=== PATIENT | male | born 1950 | race Caucasian/White ===

== ENCOUNTER → 2023-05-13 08:54 | Outpatient (REF) | payer MEDICARE, SELFPAY | LOC: HWRAD 08:54 | PROVIDERS: ATTENDING PHYSICIAN Internal Medicine Critical Care Medicine; FAMILY PHYSICIAN Family Medicine | DX: R93.89 Abnormal findings on diagnostic imaging of other specified body structures (principal) | CPT/HCPCS: 71250 ==

== ENCOUNTER 2023-05-16 05:56 | Day surgery (SDC) | payer MEDICARE, SELFPAY ==
[2023-05-16] VITALS (20 sets, daily range): BP systolic 128–151; BP diastolic 60–132; BMI 26.1
[2023-05-16] MEDS: NSS 255 ML IV (06:34)
[2023-05-16 09:21] LABS: ACT-LR - POC 258 Seconds (116-155)
--- NOTE | 2023-05-16 16:34 | ITS.CL.CATH ---
[facility] - Catheterization
Cardiac Catheterization
Procedure Report:
LEFT HEART CATHETERIZATION
Date of Procedure: May 16, 2023
Referring: Dr. Micky Keith
PROCEDURES:
1. Left heart catheterization with coronary and single-plane left ventriculography
2. Hemodynamic assessment of LAD and diagonal branch with a Bovey Verrata wire
INDICATION: This is a physically active 73-year-old gentleman who was evaluated by Dr. Keith for dyspnea on exertion which he states actually gets better with ongoing exercise. A recent stress study was notable for a small area of mild to
moderately reduced uptake in the septum. He is now referred for coronary angiography to better assess symptoms
ACCESS: Right radial artery, 6 Bengali sheath
HEMODYNAMICS : (mmHg)
AO (s/d) : 150/75
LV (s/d) : 144/12
LVEDP : 24
CORONARY FINDINGS
DOMINANCE: Right
LEFT MAIN: Normal
LEFT ANTERIOR DESCENDING: The proximal LAD is calcified. The first diagonal branch arises very proximally from the LAD then bifurcates in its midportion with a daughter branch paralleling the LAD and has a 70-80% stenosis at its ostium. The mid
LAD just beyond the diagonal branch has a 60% stenosis that is calcified. The iFR in the LAD serially measured 0.92, 0.92, and 0.92. The iFR in the diagonal branch measured 0.94, 0.94, and 0.95.
CIRCUMFLEX: The circumflex gives rise to a small OM1, very small OM 2, and medium caliber OM 3 then terminates in a small posterolateral branch.
RIGHT CORONARY ARTERY: The right coronary artery is a dominant vessel that has minor irregularities throughout its course. The PDA has a 30% ostial narrowing. The posterolateral lateral branch is large
VENTRICULOGRAPHY: Left ventriculography was performed in an VELASQUEZ projection. The digital single-plane left ventricular ejection fraction is estimated at 55% with some catheter associated mitral regurgitation noted
RADIATION SUMMARY: Fluoro Time (min): 9.0, Dose (mGy): 621.8, DAP (Gy.cm2) : 55.2
Closure Device: TR band
CONCLUSIONS
1. Moderate noncritical coronary disease in the mid LAD with calcified stenosis just beyond the origin of the proximally arising diagonal branch. The diagonal branch bifurcates into the midportion supplying to medium caliber daughter branches with
a medial branch paralleling the LAD with an 80% proximal stenosis just beyond the bifurcation point
2. Preserved left ventricular systolic function
RECOMMENDATIONS
1. Push antianginal regimen to include oral beta-sheila and possible Imdur or amlodipine as blood pressure tolerates
2. Begin furosemide for an elevated LVEDP to see if diastolic dysfunction may be contributing to his shortness of breath
Copy to: Dr. Micky Keith
== END 2023-05-16 12:56 | disposition home or self-care (01) ==
LOC: CATH 05:56
PROVIDERS: ATTENDING PHYSICIAN Internal Medicine Interventional Cardiology; FAMILY PHYSICIAN Family Medicine
DX: I25.10 Atherosclerotic heart disease of native coronary artery without angina pectoris (principal); R06.09 Other forms of dyspnea; I25.84 Coronary atherosclerosis due to calcified coronary lesion; Z79.01 Long term (current) use of anticoagulants; R94.39 Abnormal result of other cardiovascular function study
CPT/HCPCS: 85347; 93458; 93571; C1769; C1894; Q9967

== ENCOUNTER → 2023-05-25 10:08 | Outpatient (REF) | payer MEDICARE, SELFPAY ==
[2023-05-25 11:23] LABS: Blood Urea Nitrogen 21 mg/dl (9-20); Calcium 8.8 mg/dl (8.4-10.2); Carbon Dioxide 33 mmol/L (22-30); Chloride 103 mmol/L (98-107); Glucose 80 mg/dl (70-99); Potassium 4.4 mmol/L (3.5-5.1); Sodium 138 mmol/L (135-145); eGFR > 60.00
== END ==
LOC: REG 10:08
PROVIDERS: ATTENDING PHYSICIAN Nurse Practitioner; FAMILY PHYSICIAN Family Medicine; OTHER PHYSICIAN Internal Medicine Cardiovascular Disease; REFERRING PHYSICIAN Internal Medicine Interventional Cardiology
DX: I25.10 Atherosclerotic heart disease of native coronary artery without angina pectoris (principal)
CPT/HCPCS: 36415; 80048

== ENCOUNTER → 2023-06-16 09:37 | Outpatient (REF) | payer MEDICARE, SELFPAY ==
[2023-06-16 12:59] LABS: Creatine Phosphokinase 76 U/L (55-170)
[2023-06-16 13:10] LABS: NT-proBNP 288 pg/ml
[2023-06-16 13:32] LABS: Rheumatoid Agglutinin Less Than 10 IU (<10 IU)
[2023-06-17 22:58] LABS: Aldolase 4.4 U/L (1.2-7.6)
[2023-06-17 23:01] LABS: Angiotensin-1-converting Enzym 16 U/L (16-85)
[2023-06-18 02:38] LABS: ANA, IgG Reflex to HEp-2 None Detected (None Detected)
[2023-06-18 06:43] LABS: Jo-1 Antibodies 0 AU/mL (0-40); SSA 52 (Ro)(ENA) Ab, IgG 1 AU/mL (0-40); SSA 60 (Ro)(ENA) Ab, IgG 0 AU/mL (0-40); SSB (La)(ENA) Ab, IgG 15 AU/mL (0-40); Scleroderma Antibody (Scl-70) 2 AU/mL (0-40)
[2023-06-18 08:37] LABS: ds-DNA Ab, IgG Reflex To Titer 9 IU (0-24)
[2023-06-18 08:42] LABS: IgE 594 kU/L (<=214)
[2023-06-18 17:27] LABS: Myeloperoxidase Antibody 0 AU/mL (0-19); Serine Protease-3, IgG 0 AU/mL (0-19)
[2023-06-22 09:35] LABS: Aspergillus fumigatus #1 Ab None Detected (None Detected); Aspergillus fumigatus #6 Ab None Detected (None Detected); Aureobasidium pullulans Ab None Detected (None Detected); Micropolyspora faeni Ab None Detected (None Detected); Pigeon Serum Ab None Detected (None Detected)
== END ==
LOC: HWLAB 09:37
PROVIDERS: ATTENDING PHYSICIAN Internal Medicine Critical Care Medicine; FAMILY PHYSICIAN Family Medicine
DX: J84.9 Interstitial pulmonary disease, unspecified (principal)
CPT/HCPCS: 36415; 82085; 82164; 82550; 82785; 83516; 83880; 86038; 86225; 86235; 86331; 86430; 86606

== ENCOUNTER → 2023-07-08 09:04 | Outpatient (REF) | payer MEDICARE, SELFPAY ==
[2023-07-08 12:53] LABS: ALT (SGPT) 27 U/L (0-50); AST (SGOT) 40 U/L (17-59); Albumin 4.2 g/dl (3.5-5.0); Alkaline Phosphatase 99 U/L (38-126); Direct Bilirubin 0.1 mg/dl (0.0-0.4); HDL Cholesterol 88 mg/dl; LDL Cholesterol, Calculated 35 mg/dl; Total Cholesterol 139 mg/dl (50-199); Total Protein 6.7 g/dl (6.3-8.2); Triglyceride 81 mg/dl (10-149); Very Low Density Lipoprotein 16 mg/dl (0-30)
== END ==
LOC: HWLAB 09:04
PROVIDERS: ATTENDING PHYSICIAN Internal Medicine Cardiovascular Disease; FAMILY PHYSICIAN Family Medicine
DX: E78.00 Pure hypercholesterolemia, unspecified (principal)
CPT/HCPCS: 36415; 80061; 80076

== ENCOUNTER → 2023-08-16 06:33 | Day surgery (SDC) | payer MEDICARE, SELFPAY | LOC: GI 06:33 | PROVIDERS: ATTENDING PHYSICIAN Internal Medicine Gastroenterology | DX: K22.70 Barrett's esophagus without dysplasia (principal); K29.50 Unspecified chronic gastritis without bleeding; K22.89 Other specified disease of esophagus; K44.9 Diaphragmatic hernia without obstruction or gangrene; K31.A0 Gastric intestinal metaplasia, unspecified; K31.89 Other diseases of stomach and duodenum | CPT/HCPCS: 43239; 88305; 88342 ==

== ENCOUNTER → 2024-06-08 11:04 | Outpatient (REF) | payer MEDICARE, SELFPAY | LOC: HWRAD 11:04 | PROVIDERS: ATTENDING PHYSICIAN Internal Medicine Critical Care Medicine; FAMILY PHYSICIAN Family Medicine | DX: J84.9 Interstitial pulmonary disease, unspecified (principal) | CPT/HCPCS: 71250 ==

== ENCOUNTER 2024-07-19 07:41 | Emergency (ER) | payer MEDICARE, SELFPAY ==
[2024-07-19 07:49] VITALS: BP 157/73
--- NOTE | 2024-07-19 08:02 | ED.GENMED ---
History of Present Illness
General
Chief Complaint: Chest Pain
Source: patient and spouse
Exam Limitations: none
Time Seen by Provider: 07/19/24 07:55
History of Present Illness
History of Present Illness:
74-year-old male with exertional chest pressure down to the arms with shortness of breath and diaphoresis while on the treadmill this morning. Lasted 5 to 10 minutes. Has had intermittent symptoms in the past. Previous cath June 04.
Currently asymptomatic
Past History
Past History
ED Past Medical History: CAD (Moderate noncritical coronary disease left anterior descending), HTN, Hypercholesterolemia and Other (DVT)
Review of Systems
Review of Systems
All Other Systems: Not applicable
Constitutional: Denies fever or chills
Respiratory: Reports cough; Denies hemoptysis
Cardiac: Reports no symptoms
Phy Exam
Physical Exam
Physical Exam:
GENERAL: Alert and oriented in no apparent distress
EYE: Orbits normal.
NECK: Supple, no significant adenopathy.
ENT: Pharynx without erythema
CARDIAC: Regular rate and rhythm without any obvious murmurs.
LUNGS: Clear breath sounds,normal
ABDOMEN: Soft, without focal tenderness or distention
NEUROLOGICAL: Alert and oriented , grossly non-focal
SKIN: Warm and dry, no rash or lesion, no discoloration, skin intact.
MUSCULOSKELETAL: No edema,no deformity.Good color
PSYCH: Normal and appropriate interaction.
Scores
Heart Score for Chest Pain Patients
STEMI patient?: No
History: Highly Suspicious
ECG: Nonspecific Repolarization
Age: >/= 65 years
Risk Factors: 1 or 2 Risk Factors
Troponin: >1 - <3 x Normal Limit
Heart Score for Chest Pain Patients: 7
Heart Score Risk: 72.7 % MACE over next 6 weeks
Course
Orders/Labs/Results
Orders:
Orders
07/19/24 07:44
Electrocardiogram (*1) Urgent
Reason for Study: Chest Pain
EKG- Treatment ONCE
07/19/24 08:00
Cardiac Monitoring- Treatment ONCE
EKG- Treatment ONCE
IV Insert/Care/Rem.- Treatment PRN
CR Chest - 2 Views Urgent
Comment:
Reason For Exam: cp/sob/some cough
Pulse Ox/cont/shift [RESP] Stat
Quantity: 1
07/19/24 08:03
Basic Metabolic Panel Urgent
Complete Blood Count/With Diff Urgent
Troponin I Urgent
07/19/24 10:50
Echo 2D MMode Color/Doppler Urgent
Reason for Study: CP, SOB
07/19/24 11:05
Troponin I Urgent
Abnormal Lab Results
07/19/24
08:03
RBC 4.12 L 10^6/uL
(4.70-6.10)
MCV 96.6 H fL
(80.0-94.0)
MCH 33.0 H pg
(27.0-31.0)
Absolute Monos (auto) 0.8 H 10^3/uL
(0.1-0.6)
Monocytes % 14.0 H %
(1.7-9.3)
Carbon Dioxide 31 H mmol/L
(22-30)
Glucose 116 H mg/dl
(70-99)
07/19/24 08:03
07/19/24 08:03
Vital Signs
Initial and Last Documented VS:
Initial Vital Signs
Temp Pulse Resp BP Pulse Ox
98.2 F 58 16 157/73 98
07/19/24 07:49 07/19/24 07:49 07/19/24 07:49 07/19/24 07:49 07/19/24 07:49
Last Documented Vital Signs
Temp Pulse Resp BP Pulse Ox
98.2 F 57 16 139/68 97
07/19/24 07:49 07/19/24 13:45 07/19/24 13:45 07/19/24 13:00 07/19/24 13:45
*Pulse Oximetry
Patient hypoxic: no
*EKG
Interpreted by ED Provider?: Yes
Interpretation: abnormal
Comparison EKG: no comparison EKG present
Heart Rate: 67
Rate: normal
Rhythm: sinus
Walker: left axis deviation
QRS Pattern: left vent hypertrophy
Ischemia: non-specific ST changes
*[employer] Hitch Driver Interpretation
Rate: normal
Interpretation: normal
Heart Rate: 77
Rhythm: sinus
*Critical Care Note
Total Time (30-74mins, 75-104mins- exclusive of procedures): Not Applicable
Data Reviewed
Review of Other/Old Records Reveals: Labs, Records, Radiology Studies, Testing and Other (Cardiac cath report)
Update Note
Update Note:
Echocardiogram stable. Cleared by cardiology. They are arranging a sestamibi stress test for this Tuesday and starting Norvasc.
ED Attending Note
-
Portions of this chart may have been created with voice recognition software.� Occasional wrong word or��sound alike� substitutions may have occurred due to the inherent limitations of voice recognition software.
Discharge Plan
Departure
Date of Disposition: 07/19/24
Time of Disposition: 13:57
Patient with high blood pressure during this ER visit?: Yes
Prescriptions:
New
amlodipine [Norvasc] 5 mg tablet
5 mg PO DAILY Qty: 30 3RF
No Action
rabeprazole [AcipHex] 20 mg Tablet,Delayed Release (Dr/Ec)
20 mg PO Q48H
sildenafil [Viagra] 50 mg Tablet
25 mg PO DAILY PRN (Reason: ED)
psyllium Packet
1 packet PO DAILY
finasteride 5 mg Tablet
5 mg PO DAILY
Multi Complete with Iron 18-400 mg-mcg Tablet
1 tab PO DAILY
Eliquis 5 mg Tablet
5 mg PO BID
calcium carb-mag ox-zinc gluc 333-133-5 mg Tablet
1 tab PO DAILY
metoprolol succinate [Toprol XL] 25 mg tablet extended release 24 hr
25 mg PO DAILY Qty: 90 3RF
atorvastatin [atorvastatin] 40 mg tablet
40 mg PO DAILY Qty: 90 3RF
furosemide [Lasix] 20 mg tablet
20 mg PO DAILY Qty: 90 3RF
Interventions
Interventions:
*Risk Screen - Suicide Last Done: 07/19/24 07:49
*General Assessment Last Done: 07/19/24 08:09
*Neglect/Abuse Screening Last Done: 07/19/24 07:49
*ED- Fall Risk Assessment Last Done: 07/19/24 08:09
*ED COVID-19 Vaccine History Last Done: 07/19/24 08:09
ED- Cardiac Assessment Last Done: 07/19/24 08:09
Discharge Date and Time
Print Language: GUYANESE
[2024-07-19 08:08] VITALS: BMI 25.7
[2024-07-19 08:13] LABS: % Basophils 0.9 % (0-2); % Eosinophils 3.7 % (0-6); % Immature Granulocytes 0.4 % (0-0.5); % Lymphocytes 28.1 % (20.5-51.1); % Neutrophils 52.9 % (42.2-75.2); Absolute Basophils 0.1 10^3/uL (0-0.2); Absolute Eosinophils 0.2 10^3/uL (0-0.7); Absolute Lymphocytes 1.6 10^3/uL (1.2-3.4); Absolute Monocytes 0.8 10^3/uL (0.1-0.6); Hematocrit 39.8 % (39.0-52.0); Hemoglobin 13.6 g/dL (13.0-18.0); Mean Corp Hgb Conc. 34.2 g/dL (33.0-37.0); Mean Corpuscular Volume 96.6 fL (80.0-94.0); Mean Platelet Volume 9.6 fL (7.4-10.4); Nucleated Red Blood Cells % 0 % (-); Platelet Count 175 10^3/uL (130-400); Red Blood Cell Count 4.12 10^6/uL (4.70-6.10); Red Cell Dist. Width 12.3 % (11.5-14.5); White Blood Cell Count 5.7 10^3/uL (4.8-10.8)
[2024-07-19 08:36] LABS: Troponin I < 0.012 ng/ml
[2024-07-19 08:39] LABS: Blood Urea Nitrogen 20 mg/dl (9-20); Calcium 9.3 mg/dl (8.4-10.2); Carbon Dioxide 31 mmol/L (22-30); Chloride 104 mmol/L (98-107); Estimated Creatinine Clearance 67 ml/min; Glucose 116 mg/dl (70-99); Potassium 4.5 mmol/L (3.5-5.1); Sodium 141 mmol/L (135-145); eGFR > 60.00
--- NOTE | 2024-07-19 09:30 | EDRN ---
Report received, introduced myself to patient and informed them that we are waiting on cardiology to see them, call linton in reach, no complaints at this time, will continue to monitor
[2024-07-19 09:35] VITALS: BP 135/69
[2024-07-19 10:01] VITALS: BP 153/83
--- NOTE | 2024-07-19 10:14 | CON.CAR ---
Addendum entered and electronically signed by Remy Oliveira MD 07/19/24 11:44:
I saw and examined the patient.
The Mobile Home Technician's note was reviewed and I agree with the note.
Comment:
GEN: No distress, awake, Ox3
HEENT: supple, anicteric, mmm
LUNGS: CTA, no wheezes/rales
CV: Reg, S1/S2, 1/6 syst LSB, no gallop
ABD: soft, BS+, NT/ND
EXT: No edema
NEURO: Gross non-focal
SKIN: No rash
Plan:
74-year-old male with past medical history of DVT and moderate coronary artery disease, interstitial lung disease, hypertension, chronic right bundle-branch block and chronic heart failure with preserved ejection fraction presents with progressive
exertional dyspnea. The patient was walking today where he had increased dyspnea. The symptoms seem worse than his usual dyspnea symptoms. He had a previous cardiac catheterization in May 2023 which revealed moderate nonobstructive coronary
artery disease with a negative IFR of his LAD. He was previously tried on Lasix 20 mg daily with minimal improvement.
The etiology of his symptoms remains unclear. First troponin is negative. Will repeat a troponin. If second troponin negative he is stable to be discharged for outpatient exercise nuclear stress test.
EKG is overall unremarkable with normal sinus rhythm with left axis deviation and LVH.
Previous CT scan does suggest some interstitial lung disease. He has no signs of volume overload by chest x-ray today.
If stress test is abnormal we will consider repeat cardiac catheterization at that time.
Continue medical therapy including Eliquis, atorvastatin, metoprolol.
His blood pressure is elevated we will start Norvasc 5 mg daily.
Original Note:
Consultation
Consultation Request
Date/Time Consultation Performed: 07/19/24
Requesting Provider: Dr. Simental
Performing Provider: Isa Sanchez PA-C for Dr. Oliveira
Reason for Consultation: CP
Medical History
-
Chief Complaint: CP, SOB
History of Present Illness:
Patient is a 74-year-old male with past medical history of unprovoked DVTs in the setting of getting a COVID booster approximately 1.5 years ago. He reports since this time he has had issues with shortness of breath and chest pressure at times. He
underwent cardiac catheterization 05/2023 which showed moderate noncritical coronary disease in mid LAD with stenosis just beyond the origin of proximal diagonal branch which then bifurcates into daughter branches with medial branch paralleling LAD
with 80% proximal stenosis. This was not felt to be hemodynamically significant and antianginal regimen was encouraged (on toprol 25mg daily). He also has interstitial lung disease with prior smoking history and is followed by pulmonary. He
reports for the last 2 to 3 weeks he has had increasing frequency of symptoms. He reports at times he awakens in the middle of the night with chest discomfort, and reports his symptoms are definitely worsened with exertion. He does report that
historically with power walking for example, he has a hard time with the first 500 to 600 yards of exercise, however then his symptoms improve when he pushes through. He had been started on Lasix 20 mg daily for possible component of diastolic
congestive heart failure, however states his symptoms have not significantly improved with this. He does report good urination with present dose of Lasix. He reports this morning when he was at the gym he completed approximately 1 minute of
exercise on the elliptical and had to stop due to feelings of chest pressure, shortness of breath, lightheadedness, diaphoresis, numbness of his bilateral upper extremities and mild nausea. He reports this improved with time. He does have a
history of unprovoked DVTs, however has never been diagnosed with PE and is compliant with his Eliquis. Initial troponin negative. Cardiology consulted for evaluation.
PMH:
Mod nonobstructive CAD by cath 05/2023
Chronic HFpEF
History of DVT, 2021
Chronic anticoagulation with Eliquis
Chronic RBBB
PVCs
HTN
GERD
Interstitial lung disease
Former smoker
Past Medical History
Past Medical History: Other (in HPI)
Social History
Tobacco: Former Smoker
Alcohol: Occasional
Personal:
Living: With Family
Employment: Retired
Family History
Family History: Diabetes
Allergies / Home Medications
Allergy/AdvReac Type Severity Reaction Status Date / Time
No Known Allergies Allergy Verified 07/19/24 07:51
�Medication �Instructions �Recorded �Confirmed �Type
apixaban 5 mg tablet (Eliquis) 5 mg PO BID 05/16/23 05/16/23 History
atorvastatin 40 mg tablet 40 mg PO DAILY #90 tabs 05/16/23 Rx
calcium 333 mg 1 tab PO DAILY 05/16/23 05/16/23 History
(carbonate)-magnesium 133 mg
(oxide)-zinc 5 mg tablet
finasteride 5 mg tablet 5 mg PO DAILY 05/16/23 05/16/23 History
furosemide 20 mg tablet (Lasix) 20 mg PO DAILY #90 tabs 05/16/23 Rx
metoprolol succinate 25 mg 25 mg PO DAILY #90 tabs 05/16/23 Rx
tablet,extended release 24 hr
(Toprol XL)
multivitamin-ferrous 1 tab PO DAILY 05/16/23 05/16/23 History
fumarate-folic acid 18 mg-400 mcg
tablet (Multi Complete with Iron)
psyllium 1 packet PO DAILY 05/16/23 05/16/23 History
rabeprazole 20 mg tablet,delayed 20 mg PO Q48H 05/16/23 05/16/23 History
release (AcipHex)
sildenafil 50 mg tablet (Viagra) 25 mg PO DAILY PRN ED 05/16/23 05/16/23 History
Review of Systems
-
History Source: Patient and Family
All other systems: Negative unless noted
Physical Exam
Vital Signs
Temp Pulse Resp BP Pulse Ox
98.2 F 60 16 157/73 98
07/19/24 07:49 07/19/24 08:03 07/19/24 08:08 07/19/24 07:49 07/19/24 08:03
Lab Results
07/19/24 08:03
07/19/24 08:03
Troponin I < 0.012 ng/ml 07/19/24 08:03
Physical Exam
General: No Apparent Distress and Comfortable
HEENT: Normocephalic, Anicteric and Moist Mucous Membranes
Respiratory: Clear and Non Labored Respirations
Cardiac: S1/S2 and Regular Rhythm
GI: Soft, Non Tender, Non Distended and Normal Bowel Sounds
Musculoskeletal: No Clubbing, No Cyanosis and No Edema
Skin: Warm and Dry
Neuro: AO x 3
Impression / Plan
-
Primary Dance Critic: Dr. Keith
Assessment:
Presentation with CP, SOB
Negative trop x1
Mod nonobstructive CAD by cath 05/2023
Chronic HFpEF
Chronic RBBB
PVCs
History of DVT, 2021
Chronic anticoagulation with Eliquis
HTN
GERD
Interstitial lung disease
Former smoker
ECHO 03/17/23: EF 55 to 60%, mild MR, mild left atrial dilatation, aortic sclerosis, mild AR, normal right heart with PASP 36 mmHg
Plan:
-Patient presented to ER with complaints of CP, SOB. last echo in 03/2023 as above and last cath from 05/2023 with mod noncritical CAD of mid LAD with stenosis of diag branch and daughter branch.
-currently pain free
-EKG SR with NSSTS
-CXR with mild COPD/interstitial fibrosis, but no acute abnormality
-initial trop x1. check repeat
-check echo, last from 2022 as above
-consider addition of norvasc to antianginal regimen. continue toprol, statin.
-pending results of next trop and echo, would consider for OP stress test vs inpatient eval (cath vs stress). of note, patient is on eliquis, last dose this AM.
-d/w patient and at bedside
-d/w ER physician
Data Reviewed
-
EKG: Tracing Personally Visualized and interpreted
Radiology: Report Reviewed by me
Medical Tests (Nuc Med, Echo etc): Report Reviewed by me
Labs: Labs Reviewed by me
Old Records: Reviewed
[2024-07-19 11:00] VITALS: BP 143/66
--- NOTE | 2024-07-19 11:15 | EDRN ---
Cardiology saw patient, plan is for repeat troponin and Echo, Echo at bedside now, patient resting comfortably with no complaints
[2024-07-19 11:42] LABS: Troponin I < 0.012 ng/ml
[2024-07-19 12:00] VITALS: BP 139/77
--- NOTE | 2024-07-19 12:32 | EDRN ---
Updated patient on labs, aware still waiting on Echo to come back, no needs at this time.
[2024-07-19 13:00] VITALS: BP 139/68
--- NOTE | 2024-07-19 13:47 | EDRN ---
Dr. Simental back in to go over results of echo with patient, waiting for cardiology to give the go ahead to discharge
== END 2024-07-19 14:24 | disposition home or self-care (01) ==
LOC: EMR 07:41
PROVIDERS: Physician Assistant; EMERGENCY PHYSICIAN Emergency Medicine; FAMILY PHYSICIAN Family Medicine; OTHER PHYSICIAN Internal Medicine Cardiovascular Disease
DX: R07.9 Chest pain, unspecified (principal); I25.10 Atherosclerotic heart disease of native coronary artery without angina pectoris; I11.0 Hypertensive heart disease with heart failure; I50.32 Chronic diastolic (congestive) heart failure; E78.00 Pure hypercholesterolemia, unspecified; I08.3 Combined rheumatic disorders of mitral, aortic and tricuspid valves; I45.2 Bifascicular block; J44.9 Chronic obstructive pulmonary disease, unspecified; J84.9 Interstitial pulmonary disease, unspecified; K21.9 Gastro-esophageal reflux disease without esophagitis; Z86.718 Personal history of other venous thrombosis and embolism; Z87.891 Personal history of nicotine dependence; I70.0 Atherosclerosis of aorta; I49.3 Ventricular premature depolarization; Z79.01 Long term (current) use of anticoagulants
CPT/HCPCS: 99285; 71046; 80048; 84484; 85025; 93005; 93306

== ENCOUNTER → 2024-07-23 11:54 | Outpatient (REF) | payer MEDICARE, SELFPAY | LOC: HWRCS 11:54 | PROVIDERS: ATTENDING PHYSICIAN Internal Medicine Cardiovascular Disease; FAMILY PHYSICIAN Family Medicine | DX: R07.9 Chest pain, unspecified (principal); R06.09 Other forms of dyspnea; I25.10 Atherosclerotic heart disease of native coronary artery without angina pectoris | CPT/HCPCS: 78452; 93017; A9500 ==

== ENCOUNTER 2024-07-26 06:14 | Day surgery (SDC) | payer MEDICARE, SELFPAY ==
[2024-07-26] VITALS (9 sets, daily range): BP systolic 142–153; BP diastolic 61–82; BMI 25.8
[2024-07-26] MEDS: LOW STRENGTH ASPIRIN 243 MG PO (07:17)
[2024-07-26] MEDS: NSS 252 ML IV (07:23)
[2024-07-26 08:11] LABS: ACT-LR - POC 207 Seconds (116-155)
[2024-07-26 08:20] LABS: ACT-LR - POC 250 Seconds (116-155)
[2024-07-26 08:41] LABS: ACT-LR - POC 244 Seconds (116-155)
[2024-07-26] MEDS: NSS 1000 IV (09:33)
--- NOTE | 2024-07-26 11:10 | ITS.CL.CATH ---
[facility] - Catheterization
Cardiac Catheterization
Procedure Report:
LEFT HEART CATHETERIZATION
Date of Procedure: July 26, 2024
Referring: Dr. Micky Keith
PROCEDURES:
1. Left heart catheterization with coronary and single-plane left ventriculography
2. Hemodynamic assessment of LAD and diagonal branch with Screven Omni wire
3. Hemodynamic assessment of the RCA/PLB/PDA with Screven Omni wire
INDICATION: This is a 74-year-old gentleman with a past medical history notable for pulmonary fibrosis and mildly decreased DLCO. He follows with Dr. Metzger. He was most recently evaluated by Dr. Perez and reported exertional chest tightness
that had worsened over the preceding weeks. A stress study was notable for a large reversible inferior defect in a distribution concerning for RCA stenosis. LVEF is estimated 58%. When compared to the prior study this segment was new.
ACCESS: Right radial artery, 6 Palauan sheath
HEMODYNAMICS : (mmHg)
AO (s/d,m) : 155/72, 105
LV (s/d) : 158/17
LVEDP : 33
CORONARY FINDINGS
DOMINANCE: Right
LEFT MAIN: Normal
LEFT ANTERIOR DESCENDING: The LAD is calcified proximally as the vessel arises normally from the left main and runs in the anterior interventricular groove. The first diagonal branch arises very proximally from the LAD and bifurcates in its
midportion. The larger more medial daughter branch beyond the bifurcation has a 80% stenosis at its origin similar to that noted on the prior angiogram. The LAD just beyond the diagonal branch is a medium caliber vessel with only minor
irregularities noted. The LAD becomes rather small in caliber as it approaches the apex. An Omni wire was normalized to the guide catheter pressure then advanced into the mid LAD where the IFR in the LAD serially measured above the ischemic
threshold at 0.96, 0.96, and 0.97. The Omni wire was withdrawn to the origin of the diagonal branch and redirected across the stenotic segment in the first diagonal branch. The iFR measured just below the ischemic threshold at 0.87, 0.87, and
0.87. Angiographically this vessel appeared no different than on the prior angiogram.
CIRCUMFLEX: The circumflex is a medium caliber nondominant vessel that supplies a single large obtuse marginal branch. The circumflex and obtuse marginal branch have only minor irregularities over the its course but no focal obstructive stenosis.
RIGHT CORONARY ARTERY: The right coronary artery is a large-caliber dominant vessel and is now noted to have tandem 40% distal RCA stenosis just proximal to the crux of the vessel. The PDA has a 30% ostial narrowing and is a medium caliber vessel.
The posterolateral branch is large and widely patent. A Screven Verrata wire was advanced into the posterolateral branch where the iFR serially measured above the ischemic threshold at 0.98, 0.99, and 0.98. The Omni wire tip was redirected to the
PDA and advanced to the midportion of the PDA where the iFR serially measured above the ischemic threshold at 0.93, 0.93, and 0.93. The Pd/Pa back at the guide catheter measured 1.0 confirming no baseline drift.
VENTRICULOGRAPHY: Left ventriculography was performed in VELASQUEZ projection. The digital single-plane left ventricular ejection fraction is estimated at 60% and no regional wall motion abnormalities are noted
SEDATION: 62 minutes of procedural sedation was utilized. An independent product manager medical device was present to assist with and help manage the patient's level of consciousness and physiologic status.
RADIATION SUMMARY: Fluoro Time (min): 16.3, Dose (mGy): 917, DAP (Gy.cm2) : 62.9
Closure Device: TR band
CONCLUSIONS
1. Angiographically stable coronary anatomy. However, the first diagonal branch bifurcates in its midportion to a smaller and larger medial daughter branch which parallels the LAD. The iFR in this larger daughter branch measured just below the
ischemic threshold at 0.87, 0.87, and 0.87. The iFR in the LAD, PDA, and posterolateral branch all measured above the ischemic threshold. There has been modest progression of atherosclerotic disease in the distal RCA, however, the iFR in both the
PDA and PLB remain above the ischemic threshold.
2. Preserved LV systolic function
RECOMMENDATIONS
1. Increased metoprolol XL from 25 mg daily to 50 mg p.o. twice daily
2. Continue amlodipine.
3. The iFR in the diagonal branch is below the ischemic threshold although angiographically looks similar to prior study from 1 year ago. IF symptoms persist could consider PCI of the mid diagonal bifurcation into the larger diagonal branch. He
has only been on amlodipine for a few days and we will see how he is feeling on higher doses of oral beta-sheila given adequate room to move with medications based on home blood pressure readings
4. Can resume oral anticoagulation with rivaroxaban this evening
5. Trial of sublingual nitroglycerin to see if this helps for recurring symptoms
6. I would load with 600 mg of clopidogrel followed by 75 mg of clopidogrel daily if symptoms prove refractory to medical therapy.
Copy to: Dr. Micky Keith
== END 2024-07-26 13:14 | disposition home or self-care (01) ==
LOC: CATH 06:14
PROVIDERS: ATTENDING PHYSICIAN Internal Medicine Interventional Cardiology; FAMILY PHYSICIAN Family Medicine; OTHER PHYSICIAN Internal Medicine Cardiovascular Disease
DX: I25.10 Atherosclerotic heart disease of native coronary artery without angina pectoris (principal); J84.10 Pulmonary fibrosis, unspecified; R07.89 Other chest pain; I11.0 Hypertensive heart disease with heart failure; I50.30 Unspecified diastolic (congestive) heart failure; Z86.718 Personal history of other venous thrombosis and embolism; J44.9 Chronic obstructive pulmonary disease, unspecified; K21.9 Gastro-esophageal reflux disease without esophagitis; Z79.899 Other long term (current) drug therapy; Z79.01 Long term (current) use of anticoagulants
CPT/HCPCS: 93799; 85347; 93458; 99152; 99153; C1769; C1894; Q9967